=== PATIENT | female | born 1935 | race Caucasian/White ===

== ENCOUNTER → 2019-08-17 | Outpatient (CLI) | payer MEDICARE ==
--- NOTE | 2019-08-19 07:34 | MM ---
Reason for exam: screening (asymptomatic). Last mammogram was performed 2 years and 4 months ago. History: Patient is postmenopausal. Family history of breast cancer in sister and breast cancer in 2 maternal aunts. Physical Findings: A clinical breast exam by your physician is recommended on an annual basis and results should be correlated with mammographic findings. MG 3D Screening Mammo W/Cad Bilateral CC and MLO view(s) were taken. Prior study comparison: April 23, 2017, mammogram. October 06, 2015, mammogram. There are scattered fibroglandular densities. Finding: There are typically benign round, diffuse/scattered calcifications in both breasts. No significant changes in finding since April 23, 2017 and October 06, 2015. ASSESSMENT: Benign, BI-RAD 2 RECOMMENDATION: Routine screening mammogram of both breasts in 1 year.
== END | disposition home or self-care (01) ==
LOC: RADMAMWWP 14:08
PROVIDERS: ATTEND Family Medicine
DX: Z12.31 Encounter for screening mammogram for malignant neoplasm of breast (principal)
CPT/HCPCS: 77063; 77067

== ENCOUNTER 2019-09-23 22:22 | Emergency (ER) | payer MEDICARE ==
[2019-09-23 22:29] VITALS: TEMP 98.1
[2019-09-23] MEDS ORDERED: PANTOPRAZOLE 40 MG/10 ML VIAL IVP STA (22:52)
--- NOTE | 2019-09-23 22:57 | ED ---
General Adult HPI - General Chief complaint: Abdominal Pain Stated complaint: Sore Throat Time Seen by Provider: 09/23/19 22:37 Source: patient, family Mode of arrival: ambulatory Limitations: no limitations - History of Present Illness Initial comments: Patient is an 84-year-old female presenting to the emergency Department with complaints of a sore throat, cough for the past few weeks. Patient states she went to her PCP a few weeks ago for same complaints and was given amoxicillin and a cough suppressant. Patient states her symptoms did improve but then last few days she feels like the symptoms have worsened. She is complaining of a dry irritated throat as well as a dry cough, with mild sputum production. She also admits to mild epigastric pain that started after she ate some lunch today. Patient states she does have a history of acid reflux. She also has history of diabetes and hypertension. She denies fever, chills, shortness of breath, chest pain, vomiting, diarrhea. She has no other complaints at this time. Upon arrival to the ER, her blood pressure is elevated at 194/82, rest of vitals are normal. - Related Data Previous Rx's Medication Instructions Recorded Azithromycin [Zithromax] 250 mg PO DAILY 4 Days #4 tab 09/24/19 Allergies Allergy/AdvReac Type Severity Reaction Status Date / Time No Known Allergies Allergy Verified 09/23/19 22:29 Review of Systems ROS Statement: Those systems with pertinent positive or pertinent negative responses have been documented in the HPI. ROS Other: All systems not noted in ROS Statement are negative. Past Medical History Past Medical History: Diabetes Mellitus, GERD/Reflux, Hypertension History of Any Multi-Drug Resistant Organisms: None Reported Past Surgical History: Cholecystectomy, Joint Replacement Past Psychological History: No Psychological Hx Reported Smoking Status: Never smoker Past Alcohol Use History: None Reported Past Drug Use History: None Reported General Exam - General Exam Comments Initial Comments: GENERAL: Well-appearing, well-nourished and in no acute distress. HEAD: Atraumatic, normocephalic. EYES: Pupils equal round and reactive to light, extraocular movements intact, sclera anicteric, conjunctiva are normal. ENT: TMs normal, nares patent, oropharynx clear without exudates. Moist mucous membranes. NECK: Normal range of motion, supple without lymphadenopathy or JVD. LUNGS: Breath sounds clear to auscultation bilaterally and equal. No wheezes rales or rhonchi. HEART: Regular rate and rhythm without murmurs, rubs or gallops. ABDOMEN: Soft, nontender, normoactive bowel sounds. No guarding, no rebound. No masses appreciated. : Deferred EXTREMITIES: Normal range of motion, no pitting or edema. No clubbing or cyanosis. NEUROLOGICAL: Normal speech, normal gait. PSYCH: Normal mood, normal affect. SKIN: Warm, Dry, normal turgor, no rashes or lesions noted. Limitations: no limitations Course Vital Signs 09/23/19 09/23/19 22:24 23:04 Temperature 98.1 F Pulse Rate 87 77 Respiratory 20 18 Rate Blood Pressure 194/82 159/103 O2 Sat by Pulse 97 97 Oximetry EKG Findings - EKG Comments: EKG Findings:: Ventricular rate 72, NV interval 154, QTC 420. Sinus rhythm with premature supraventricular complexes. Incomplete RBBB. No ST-T segment changes. No signs of acute ischemia. Medical Decision Making - Medical Decision Making Patient is an 84-year-old female presenting with a sore throat and mild epigastric pain 2 days. She was treated by her PCP a few weeks ago with amoxicillin for similar symptoms. Vital signs are stable today, afebrile. Patient's exam is unremarkable. EKG shows no signs of acute ischemia. Lab work shows no acute process. Troponin is normal. Strep is negative. Chest x-ray shows right middle lobe opacity that could be related to pneumonia. Patient was given Protonix which did alleviate her epigastric discomfort. She does have history of acid reflux and takes omeprazole. I discussed with patient that her symptoms could be related to mild pneumonia. Patient will discontinue amoxicillin and we will start her on azithromycin. First dose will be given the ER. Patient's vital signs remained stable. She is stable for discharge at this time. Patient is in agreement with this plan of care. Return parameters were discussed with the patient and she verbalized understanding. Case discussed Dr. Oneal. - Lab Data Result diagrams: 09/23/19 23:20 09/23/19 23:20 Lab Results 09/23/19 09/23/19 09/23/19 Range/Units 23:20 23:20 23:20 WBC 8.6 (3.8-10.6) k/uL RBC 5.37 (3.80-5.40) m/uL Hgb 15.4 (11.4-16.0) gm/dL Hct 47.5 H (34.0-46.0) % MCV 88.4 (80.0-100.0) fL MCH 28.6 (25.0-35.0) pg MCHC 32.4 (31.0-37.0) g/dL RDW 13.6 (11.5-15.5) % Plt Count 361 (150-450) k/uL Neutrophils % 66 % Lymphocytes % 22 % Monocytes % 7 % Eosinophils % 2 % Basophils % 1 % Neutrophils # 5.7 (1.3-7.7) k/uL Lymphocytes # 1.9 (1.0-4.8) k/uL Monocytes # 0.6 (0-1.0) k/uL Eosinophils # 0.2 (0-0.7) k/uL Basophils # 0.0 (0-0.2) k/uL Sodium 140 (137-145) mmol/L Potassium 4.6 (3.5-5.1) mmol/L Chloride 104 (98-107) mmol/L Carbon Dioxide 26 (22-30) mmol/L Anion Gap 10 mmol/L BUN 16 (7-17) mg/dL Creatinine 0.96 (0.52-1.04) mg/dL Est GFR (CKD-EPI)AfAm 63 (>60 ml/min/1.73 sqM) Est GFR (CKD-EPI)NonAf 55 (>60 ml/min/1.73 sqM) Glucose 117 H (74-99) mg/dL Calcium 10.0 (8.4-10.2) mg/dL Total Bilirubin 0.6 (0.2-1.3) mg/dL AST 43 H (14-36) U/L ALT 26 (4-34) U/L Alkaline Phosphatase 100 (38-126) U/L Troponin I <0.012 (0.000-0.034) ng/mL Total Protein 7.9 (6.3-8.2) g/dL Albumin 4.8 (3.5-5.0) g/dL Lipase 163 (23-300) U/L Group A Strep Rapid (Negative) 09/23/19 Range/Units 23:20 WBC (3.8-10.6) k/uL RBC (3.80-5.40) m/uL Hgb (11.4-16.0) gm/dL Hct (34.0-46.0) % MCV (80.0-100.0) fL MCH (25.0-35.0) pg MCHC (31.0-37.0) g/dL RDW (11.5-15.5) % Plt Count (150-450) k/uL Neutrophils % % Lymphocytes % % Monocytes % % Eosinophils % % Basophils % % Neutrophils # (1.3-7.7) k/uL Lymphocytes # (1.0-4.8) k/uL Monocytes # (0-1.0) k/uL Eosinophils # (0-0.7) k/uL Basophils # (0-0.2) k/uL Sodium (137-145) mmol/L Potassium (3.5-5.1) mmol/L Chloride (98-107) mmol/L Carbon Dioxide (22-30) mmol/L Anion Gap mmol/L BUN (7-17) mg/dL Creatinine (0.52-1.04) mg/dL Est GFR (CKD-EPI)AfAm (>60 ml/min/1.73 sqM) Est GFR (CKD-EPI)NonAf (>60 ml/min/1.73 sqM) Glucose (74-99) mg/dL Calcium (8.4-10.2) mg/dL Total Bilirubin (0.2-1.3) mg/dL AST (14-36) U/L ALT (4-34) U/L Alkaline Phosphatase (38-126) U/L Troponin I (0.000-0.034) ng/mL Total Protein (6.3-8.2) g/dL Albumin (3.5-5.0) g/dL Lipase (23-300) U/L Group A Strep Rapid Negative (Negative) Disposition Clinical Impression: Cough, Pneumonia, Sore throat Disposition: HOME SELF-CARE Condition: Stable Instructions (If sedation given, give patient instructions): Pneumonia (ED) Additional Instructions: Please return to the Emergency Department if symptoms worsen or any other concerns. Take antibiotic as prescribed. Follow-up with PCP. Prescriptions: Azithromycin [Zithromax] 250 mg PO DAILY 4 Days #4 tab Is patient prescribed a controlled substance at d/c from ED?: No Referrals: Saravanan Coombs MD [Primary Care Provider] - 1-2 days
[2019-09-23 23:05] VITALS: RESP 18
[2019-09-23 23:53] LABS: Basophils % (A) 1 %; Eosinophils # (A) 0.2 k/uL (0-0.7); Eosinophils % (A) 2 %; HCT 47.5 % (34.0-46.0); HGB 15.4 gm/dL (11.4-16.0); Lymphocytes # (A) 1.9 k/uL (1.0-4.8); Lymphocytes % (A) 22 %; MCH 28.6 pg (25.0-35.0); MCHC 32.4 g/dL (31.0-37.0); MCV 88.4 fL (80.0-100.0); Monocytes # (A) 0.6 k/uL (0-1.0); Monocytes % (A) 7 %; Neutrophils # (A) 5.7 k/uL (1.3-7.7); Neutrophils % (A) 66 %; Platelet Count 361 k/uL (150-450); RBC 5.37 m/uL (3.80-5.40); RDW 13.6 % (11.5-15.5); WBC 8.6 k/uL (3.8-10.6)
--- NOTE | 2019-09-23 23:59 | XR ---
EXAMINATION TYPE: XR chest 1V DATE OF EXAM: 09/23/2019 COMPARISON: NONE HISTORY: Cough and shortness of breath TECHNIQUE: Single frontal view of the chest is obtained. FINDINGS: Plaque like linear opacities are likely on the basis of atelectasis at the lung bases. Opac ity overlying the right middle lobe is focal obscuring the right heart border of the right costophren ic angle. No pleural effusion or pneumothorax seen. The cardiac silhouette size is within normal li mits. The osseous structures are intact. Hilar prominence is seen bilaterally. IMPRESSION: 1. Right middle lobe opacity obscuring the right heart border that may relate to atelectasis or pneum onia. Platelike bibasilar atelectasis is also seen. 2. Prominent alonzo, which may be on the basis of pulmonary hypertension or less likely adenopathy.
[2019-09-24 00:04] LABS: Albumin 4.8 g/dL (3.5-5.0); Potassium 4.6 mmol/L (3.5-5.1); Total Protein 7.9 g/dL (6.3-8.2)
[2019-09-24 00:05] LABS: Total Bilirubin 0.6 mg/dL (0.2-1.3)
[2019-09-24] MEDS ORDERED: AZITHROMYCIN 500 MG TAB PO STA (00:59)
[2019-09-24 01:26] VITALS: BP 160/84; PULSE 79
== END 2019-09-24 01:15 | disposition home or self-care (01) ==
LOC: EC 22:22
DX: J18.9 Pneumonia, unspecified organism (principal); R10.13 Epigastric pain; Z90.49 Acquired absence of other specified parts of digestive tract; Z96.698 Presence of other orthopedic joint implants
CPT/HCPCS: 36415; 93005; 80053; 83690; 84484; 85025; 87081; 87430; 71045; 99284; 96374; C9113

== ENCOUNTER 2020-01-04 07:49 | Day surgery (SDC) | payer MEDICARE ==
[2019-12-31 15:17] VITALS: BMI 27.4
[~2020-01-04 07:49] MED LIST: LACTATED RINGERS 1,000 ML IV SCH; LIDOCAINE 1% (10MG/ML) FOR IV START INTRADERMA PRN
[2020-01-04 08:12] VITALS: TEMP 97
[2020-01-04 08:23] LABS: Glucose,Whole Blood 138 mg/dL (75-99)
[2020-01-04] MEDS ORDERED: PROPOFOL 10 MG/ML 20 ML VIAL IV ONE (08:25)
[2020-01-04 08:55] VITALS: RESP 16
--- NOTE | 2020-01-04 08:59 | P.PCN ---
Date of Procedure: 01/04/20 Description of Procedure: BRIEF HISTORY: 84-year-old female with medical history of GERD presenting in addition esophagogastroduodenoscopy evaluation patient previously with good control of symptoms presented back to the outpatient setting with complaints of globus) on twice daily PPI. Patient did report poor eating habits and eating late at night. PROCEDURE PERFORMED: Esophagogastroduodenoscopy with biopsy. PREOPERATIVE DIAGNOSIS: GERD. ESTIMATED BLOOD LOSS: Minimal. IV sedation per anesthesia. PROCEDURE: After informed consent was obtained, the patient was brought into the endoscopy unit. IV sedation was administered by Anesthesia under continuous monitoring. Initially the Olympus GIF-190 video endoscope was inserted into the mouth. Esophagus intubated without any difficulty. It was gradually advanced into the stomach and duodenum and carefully examined. The bulb and the second part of the duodenum appeared normal, with biopsies. The scope at this time was withdrawn to the stomach, adequately insufflated with air, and upon careful examination, mucosa of the antrum, body, cardia and the fundus appeared normal, except for some mild punctate erythema in the antrum suggestive of mild antritis with biopsies of the antrum and body taken. The scope was then withdrawn into the esophagus. The GE junction was located at 37 cm from the incisors, with a small 2 cm hiatal hernia noted. The esophagus appeared normal, with biopsies of the GE junction and midesophagus taken to rule out reflux esophagitis. There were no erosions or ulcerations seen and the patient tolerated the procedure well. IMPRESSION: 1. Mild gastritis, antrum and body biopsied. 2. Biopsies of the duodenum, GE junction and midesophagus. 3. Small hiatal hernia. RECOMMENDATIONS: The findings of this examination were discussed with the patient. Okay to resume diet. Okay to resume medication. Await pathology from biopsies. Follow up in gastroenterology clinic as previously scheduled. Continue PPI therapy. Continue trial of antihistamines for postnasal drip.
[2020-01-04 09:06] VITALS: BP 131/79; PULSE 76
== END 2020-01-04 09:37 | disposition home or self-care (01) ==
LOC: ORWHC2ENDO 07:49
PROVIDERS: ATTEND Internal Medicine
DX: K29.70 Gastritis, unspecified, without bleeding (principal); K44.9 Diaphragmatic hernia without obstruction or gangrene; K22.8 Other specified diseases of esophagus; F45.8 Other somatoform disorders; R09.82 Postnasal drip; I10 Essential (primary) hypertension; E78.5 Hyperlipidemia, unspecified; E07.9 Disorder of thyroid, unspecified; E11.9 Type 2 diabetes mellitus without complications; G89.29 Other chronic pain; K21.9 Gastro-esophageal reflux disease without esophagitis; Z72.4 Inappropriate diet and eating habits; Z79.891 Long term (current) use of opiate analgesic; Z79.84 Long term (current) use of oral hypoglycemic drugs; Z79.899 Other long term (current) drug therapy; Z79.890 Hormone replacement therapy; Z79.82 Long term (current) use of aspirin; Z90.49 Acquired absence of other specified parts of digestive tract; Z96.642 Presence of left artificial hip joint; Z98.890 Other specified postprocedural states; Z98.41 Cataract extraction status, right eye; Z98.42 Cataract extraction status, left eye
CPT/HCPCS: 88305; 43239; J2704

== ENCOUNTER → 2022-04-10 | Outpatient (CLI) | payer MEDICARE ==
--- NOTE | 2022-04-11 16:39 | MM ---
Reason for Exam: Screening (asymptomatic). Last mammogram was performed 2 year(s) and 7 month(s) ago. Patient History: Menarche at age 13. First Full-Term at age 30. Late child-bearing (after 30). Postmenopausal. Maternal aunt had breast cancer. Maternal aunt had breast cancer. Sister had breast cancer, age 53. Mother had ovarian cancer, age 41. Prior Study Comparison: 10/06/2015 Screening Mammogram, Unknown. 04/23/2017 Screening Mammogram, Unknown. 08/17/2019 Bilateral Screening Mammogram, [facility]. Tissue Density: There are scattered fibroglandular densities. Findings: Analyzed By CAD. Benign scattered round calcifications are present bilaterally No suspicious groups of microcalcifications, spiculated or lobular masses, architectural distortion or other secondary signs of malignancy are mammographically apparent. Overall Assessment: Benign, BI-RAD 2 Management: Screening Mammogram of both breasts in 1 year. A negative mammogram report should not preclude additional follow up of suspicious palpable abnormalities. Patient should continue monthly self breast exam. A clinical breast exam by your physician is recommended on an annual basis and results should be correlated with mammographic findings. Electronically signed and approved by: Mauricio Beth D.O. Radiologis
== END | disposition home or self-care (01) ==
LOC: RADMAMWWP 13:25
PROVIDERS: ATTEND Family Medicine
DX: Z12.31 Encounter for screening mammogram for malignant neoplasm of breast (principal)
CPT/HCPCS: 77067

== ENCOUNTER → 2022-04-17 | Outpatient (CLI) | payer MEDICARE ==
[2022-04-18 00:41] LABS: % Iron Saturation 23.51 (12.00-45.00); African American GFR (CKD) 46.9 (60.0-200.0); Anion Gap 13.8 mmol/L (10.00-18.00); BUN/Creat Ratio 18.02 Ratio (12.00-20.00); Blood Urea Nitrogen 21.8 mg/dL (9.0-27.0); Calcium 10.1 mg/dL (8.7-10.3); Carbon Dioxide 25.8 mmol/L (20.0-27.5); Magnesium 2.5 mg/dL (1.5-2.4); Non-African American GFR(CKD) 40.5 (60.0-200.0); Phosphorus 3.9 mg/dL (2.4-5.1); Potassium 4.4 mmol/L (3.5-5.5); Uric Acid 7.1 mg/dL (2.9-7.7)
[2022-04-18 01:01] LABS: Ferritin 87.2 ng/mL (10.0-291.0)
[2022-04-18 01:28] LABS: HGB 14.7 g/dL (12.0-15.0); MCH 28.8 pg (27.0-32.0); MCHC 32.7 g/dL (32.0-37.0); MCV 88.2 fL (80.0-97.0); Mean Platelet Volume 10.3 fL (9.5-12.2); NRBC Per 100 WBC 0 /100 WBCS (0.0-0.0); Platelet Count 428 X 10*3/uL (140-440); RDW 14.6 % (11.5-14.5); WBC 10.04 X 10*3/uL (4.50-10.00)
== END | disposition home or self-care (01) ==
LOC: LABWHC1 14:30
PROVIDERS: ATTEND Nurse Practitioner Family
DX: E55.9 Vitamin D deficiency, unspecified (principal); N18.30 Chronic kidney disease, stage 3 unspecified; N25.81 Secondary hyperparathyroidism of renal origin; M10.9 Gout, unspecified; D63.1 Anemia in chronic kidney disease
CPT/HCPCS: 36415; 80048; 82306; 82728; 83540; 83550; 83735; 83970; 84100; 84550; 85027

== ENCOUNTER 2022-05-14 13:54 | Emergency (ER) | payer MEDICARE ==
[2022-05-14 14:25] VITALS: RESP 16; TEMP 96.4
--- NOTE | 2022-05-14 14:57 | XR ---
EXAMINATION TYPE: XR foot complete LT DATE OF EXAM: 05/14/2022 CLINICAL HISTORY: Swelling and bruising after crush injury TECHNIQUE: Frontal, lateral, and oblique images of the left foot are obtained. COMPARISON: None FINDINGS: Osseous structures are demineralized which is noted to lower radiographic sensitivity for e valuation of fine anatomic detail. Acute comminuted slightly displaced intra-articular fracture invol ving the medial base of the first proximal phalanx is present. Moderate narrowing midfoot joint with [id number] spurring. Moderate size inferior calcaneal spur. Mild to moderate diffuse soft tissu e swelling is seen. IMPRESSION: There is acute comminuted slightly displaced intra-articular fracture medial base of the first proximal phalanx.
--- NOTE | 2022-05-14 16:04 | ED ---
Lower Extremity Injury HPI - General Chief Complaint: Extremity Injury, Lower Stated Complaint: foot injury Time Seen by Provider: 05/14/22 15:53 Source: patient, family, RN notes reviewed, old records reviewed Mode of arrival: ambulatory Limitations: no limitations - History of Present Illness Initial Comments: Well-appearing 86-year-old presents to the emergency room with complaints of left great toe pain after dropping a vegetable can on her foot on Saturday. Patient states she's had increased pain and swelling and now developed a blister to the base of her nail. Patient has been able to ambulate. Complaint: foot injury (great toe left) -: days(s) (6) Injury: Foot: Left (great toe) Type of Injury: blunt (dropped can onto foot) Place: home Severity scale (1-10): 5 Improves With: immobilization Worsens With: weight bearing, palpation Context: direct blow (can) Treatments Prior to Arrival: other (tylenol) - Related Data Home Medications Medication Instructions Recorded Confirmed Aspirin [Adult Low Dose Aspirin EC] 81 mg PO HS 12/31/19 01/04/20 Cholecalciferol [Vitamin D3 (25 2,000 unit PO DAILY 12/31/19 01/04/20 Mcg = 1000 Iu)] Levothyroxine Sodium [Levoxyl] 75 mcg PO [id number] 12/31/19 01/04/20 Levothyroxine Sodium [Synthroid] 50 mcg PO MOTH 12/31/19 01/04/20 Metoprolol Succinate (ER) [Toprol 50 mg PO DAILY 12/31/19 01/04/20 Xl] Omeprazole [PriLOSEC] 20 mg PO [id number] 12/31/19 01/04/20 Pravastatin Sodium [Pravachol] 40 mg PO HS 12/31/19 01/04/20 Zolpidem [Ambien] 5 mg PO HS PRN 12/31/19 01/04/20 amLODIPine [Norvasc] 10 mg PO DAILY 12/31/19 01/04/20 lisinopriL 20 mg PO HS 12/31/19 01/04/20 lisinopriL 40 mg PO DAILY 12/31/19 01/04/20 metFORMIN HCL [Glucophage] 500 mg PO DAILY 12/31/19 01/04/20 traMADol HCL [Ultram] 50 mg PO DIRECTED PRN 12/31/19 01/04/20 Allergies Allergy/AdvReac Type Severity Reaction Status Date / Time No Known Allergies Allergy Verified 05/14/22 14:25 Review of Systems ROS Statement: Those systems with pertinent positive or pertinent negative responses have been documented in the HPI. ROS Other: All systems not noted in ROS Statement are negative. Past Medical History Past Medical History: Diabetes Mellitus, GERD/Reflux, Hypertension, Osteoarthritis (OA), Thyroid Disorder Additional Past Medical History / Comment(s): Some dysphagia. History of Any Multi-Drug Resistant Organisms: None Reported Past Surgical History: Cholecystectomy, Joint Replacement Additional Past Surgical History / Comment(s): Total Lt Hip 2009. EGD, Colonoscopy. Emery cataracts. Past Anesthesia/Blood Transfusion Reactions: No Reported Reaction Past Psychological History: No Psychological Hx Reported Smoking Status: Never smoker - Past Family History Mother Sister(s) Family Medical History: Cancer Additional Family Medical History / Comment(s): Mother - ovarian cancer. Sister - breast cancer General Exam Limitations: no limitations General appearance: alert, in no apparent distress Head exam: Absent: atraumatic Eye exam: Absent: scleral icterus, conjunctival injection, periorbital swelling Respiratory exam: Absent: respiratory distress, accessory muscle use Cardiovascular Exam: Present: regular rate Left Foot/Toe exam: Present: tenderness (Great toe), swelling (First and second), ab rasion (Blister base of nail bed great toe), ecchymosis (Great toe and second toe). Absent: calcaneal tenderness, tenderness at base of 5th metatarsal, nail avulsion Neurovascular tendon exam: Present: no vascular compromise. Absent: abnormal cap refill, extremity cold to touch, pallor, foot drop Neurological exam: Present: alert, oriented X3 Psychiatric exam: Present: normal affect, normal mood Skin exam: Present: warm, dry, normal color. Absent: rash, cyanosis, diaphoretic, petechiae, pallor Course Vital Signs 05/14/22 05/14/22 14:21 16:36 Temperature 96.4 F L Pulse Rate 93 85 Respiratory 16 16 Rate Blood Pressure 176/84 169/84 O2 Sat by Pulse 96 95 Oximetry Medical Decision Making - Medical Decision Making X-ray left foot interpreted by me shows an acute fracture of the first proximal phalanx. Radiologist interpretation is an acute comminuted slightly displaced intra- articular fracture medial base of the first proximal phalanx. There is an approximate 1.5 cm fracture blister just below the nail bed. She has been ambulating on the foot. She was directed to keep a close eye on fracture blister and return if any signs of infection. Case discussed with Dr. Bowers, she will be given an orthopedic post-op shoe and a referral to orthopedics. Disposition Clinical Impression: Fracture of great toe, left, closed, Fracture blister Disposition: HOME SELF-CARE Condition: Good Instructions (If sedation given, give patient instructions): Toe Fracture (ED) Additional Instructions: Rest, ice and elevate foot. Wear the orthopedic shoe to prevent flexion of the toe. Tylenol and/or Motrin as needed for pain. Follow-up with orthopedics this week. Return to the emergency room with any new or concerning symptoms including signs of infection. Is patient prescribed a controlled substance at d/c from ED?: No Referrals: Saravanan Coombs MD [Primary Care Provider] - 1-2 days Darron Barrios MD [Medical Doctor] - 1-2 days Time of Disposition: 16:10
[2022-05-14] MEDS ORDERED: traMADol 50 MG TAB PO STA (16:11)
[2022-05-14 16:37] VITALS: BP 169/84; PULSE 85
== END 2022-05-14 16:37 | disposition home or self-care (01) ==
LOC: EC 13:54
DX: S92.402A Displaced unspecified fracture of left great toe, initial encounter for closed fracture (principal); E11.9 Type 2 diabetes mellitus without complications; I10 Essential (primary) hypertension; K21.9 Gastro-esophageal reflux disease without esophagitis; M19.90 Unspecified osteoarthritis, unspecified site; Z79.82 Long term (current) use of aspirin; Z79.890 Hormone replacement therapy; Z79.83 Long term (current) use of bisphosphonates; Z79.899 Other long term (current) drug therapy; W20.8XXA Other cause of strike by thrown, projected or falling object, initial encounter
CPT/HCPCS: 99283

== ENCOUNTER → 2023-04-09 | Outpatient (CLI) | payer MEDICARE ==
--- NOTE | 2023-04-10 08:59 | MM ---
Reason for Exam: Screening (asymptomatic). Last screening mammogram was performed 12 month(s) ago. Patient History: Menarche at age 13. First Full-Term at age 30. Late child-bearing (after 30). Postmenopausal. Maternal aunt had breast cancer. Maternal aunt had breast cancer. Sister had breast cancer, age 53. Mother had ovarian cancer, age 41. Prior Study Comparison: 04/23/2017 Screening Mammogram, Unknown. 08/17/2019 Bilateral Screening Mammogram, [facility]. 04/10/2022 Bilateral MG screening mammo w CAD, [facility]. Tissue Density: There are scattered fibroglandular densities. Findings: Analyzed By CAD. There is no suspicious group of microcalcifications or new suspicious mass in either breast. Overall Assessment: Benign, BI-RAD 2 Management: Screening Mammogram of both breasts in 1 year. . Patient should continue monthly self-breast exams. A clinical breast exam by your physician is recommended on an annual basis. This exam should not preclude additional follow-up of suspicious palpable abnormalities. Note on Kaci scores and lifetime risk: 1. A Kaci score greater than 3% is considered moderate risk. If this is the case, consider specialist referral to assess eligibility for a risk reducing agent. 2. If overall lifetime risk for the development of breast cancer is 20% or higher, the patient may qualify for future screening with alternating mammogram and breast MRI. Electronically signed and approved by: Benjamin Brown M.D. Radiologis
== END | disposition home or self-care (01) ==
LOC: RADMAMWWP 12:54
PROVIDERS: ATTEND Family Medicine
DX: Z12.31 Encounter for screening mammogram for malignant neoplasm of breast (principal); Z78.0 Asymptomatic menopausal state; Z80.3 Family history of malignant neoplasm of breast
CPT/HCPCS: 77063; 77067

== ENCOUNTER → 2024-04-16 | Outpatient (CLI) | payer MEDICARE | END | disposition home or self-care (01) | LOC: RADMAMWWP 13:52 | PROVIDERS: ATTEND Family Medicine | DX: Z12.31 Encounter for screening mammogram for malignant neoplasm of breast (principal) | CPT/HCPCS: 77063; 77067 ==